=== PATIENT | male | born 1945 | race Caucasian/White ===

== ENCOUNTER → 2024-07-24 15:09 | Outpatient (CLI) | payer MEDICARE, SELFPAY ==
--- NOTE | 2024-07-24 15:13 | DI.US.S_ITS ---
PROCEDURE: US SOFT TISSUE HEAD AND NECK INDICATIONS: MASS OF RT SIDE OF NECK TECHNIQUE: Real-time scanning was performed of the neck region of interest, with image documentation. COMPARISON: None. FINDINGS: Within the right-side of the neck, there are 2 hypoechoic masses seen immediately adjacent to one another measuring 2.7 x 2.2 x 2.2 cm and 2.1 x 1.9 x 1.9 cm. Additional smaller lymph nodes can be seen elsewhere. IMPRESSION: Right-sided neck masses are seen, which are attributed to enlarged, abnormal lymph nodes, most likely representing metastatic disease. Additional evaluation is recommended, beginning with a dedicated soft tissue protocol CT of the neck with IV contrast. Please also consider ENT consultation. Please also consider percutaneous ultrasound-guided biopsy of these lymph nodes. Dictated by: Dimitri Bertrand M.D. on 07/24/2024 at 15:41 Approved by: Dimitri Bertrand M.D. on 07/24/2024 at 15:43
== END ==
PROVIDERS: PCP Family Medicine; Referring Provider Family Medicine; Visit Provider Family Medicine
DX: R22.1 Localized swelling, mass and lump, neck (principal)
CPT/HCPCS: 76536

== ENCOUNTER → 2024-07-28 07:03 | Outpatient (CLI) | payer MEDICARE, SELFPAY ==
--- NOTE | 2024-07-28 07:05 | DI.CT.S_ITS ---
PROCEDURE: CT SOFT TISSUE NECK W CON INDICATIONS: MASS OF RT NECK / ABNORMAL US TECHNIQUE: After the administration of intravenous contrast, 3.0 mm axial sections acquired from the sella to the aortic arch. Additional oblique axial 3.0 mm sections acquired through the pharynx. 3 mm thick coronal and sagittal reformats were generated. For radiation dose reduction, the following was used: automated exposure control. COMPARISON: [facility], , US SOFT TISSUE HEAD AND NECK, 07/24/2024, 15:30. FINDINGS: Image quality: Excellent. Lymph nodes: At the marked area of clinical concern, there are several enlarged lymph nodes seen. The largest solitary lymph node measures 2.8 x 1.9 cm in greatest axial dimension, at the right level 2A. Borderline prominent lymph nodes can be seen elsewhere. Vessels: Visualized vasculature appears patent. Neck spaces: There is abnormal soft tissue fullness with enhancement seen within the right peritonsillar region, as on series 2, image 44, measuring 2.4 x 2.1 cm in greatest axial dimension. Glands: The parotid and submandibular glands appear normal. Thyroid gland demonstrates no significant abnormality. Miscellaneous: Visualized brain and orbits appear normal. Lung apices appear clear. Superficial soft tissues appear normal. Bones: No suspicious bony lesions. Visualized sinuses and mastoids appear unremarkable. At least moderate cervical spine degenerative change is seen. IMPRESSION: Enlarged right-sided neck lymph nodes are seen, which are highly suspicious for metastatic disease. There is abnormal fullness seen within the right peritonsillar region, which is suspicious for primary cancer. Please consider ENT consultation, with laryngoscopy. Dictated by: Dimitri Bertrand M.D. on 07/28/2024 at 12:28 Approved by: Dimitri Bertrand M.D. on 07/28/2024 at 12:31
[2024-07-28 07:45] LABS: Estimated Glomerular Filt Rate > 60 mL/min (>60)
== END ==
PROVIDERS: PCP Family Medicine; Referring Provider Radiology Diagnostic Radiology; Visit Provider Radiology Diagnostic Radiology
DX: R22.1 Localized swelling, mass and lump, neck (principal); R93.89 Abnormal findings on diagnostic imaging of other specified body structures; R59.0 Localized enlarged lymph nodes
CPT/HCPCS: 36415; 70491; 82565; Q9967

== ENCOUNTER → 2024-08-20 14:36 | Outpatient (CLI) | payer MEDICARE, SELFPAY ==
--- NOTE | 2024-08-20 | DI.US.S_ITS ---
PROCEDURE: US BIOPSY LYMPH NODE INDICATIONS: Localized swelling, mass and lump, neck TECHNIQUE: The indications, alternatives, benefits, risks, and complications of the procedure were explained to the patient. Written informed consent was obtained and placed in the chart. Real-time sonography was utilized to choose the site for percutaneous lymph node sampling. The skin was prepped and draped in the usual sterile fashion. 1% lidocaine was infiltrated down to the site of interest. A coaxial needle was then advanced into the site of interest under direct sonographic visualization. A biopsy apparatus was then utilized, and core biopsies were obtained. The needle was then withdrawn; a bandage was applied to the biopsy site. COMPARISON: None. FINDINGS: Biopsy site(s): Right submandibular miryam mass. Needle: [address] biopsy needle set. Number of passes: 4 Medications: 1% lidocaine for local anaesthesia. Complications: None. IMPRESSION: Successful ultrasound-guided right submandibular miryam mass biopsy, with pathology results pending. Dictated by: Faustino Thrasher M.D. on 08/20/2024 at 16:09 Approved by: Faustino Thrasher M.D. on 08/20/2024 at 16:09
--- NOTE | 2024-08-20 | PATH_ITS ---
[facility] Accession Number: [id number] No. of containers..01 Tissue . 01 Material submitted: . submandibular gland - RIGHT SUBMANDIBULAR MASS . 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 See comment. MRV 08/27/2024 1455 Local . 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 Although not favored, differential also includes high-grade salivary carcinoma like mucoepidermoid carcinoma. . The findings were called to Dr. Elizalde on 08/27/2024 [address] Quiros. . As part of ongoing quality control chemist, this case is also reviewed by Dr. Mellissa Nino, who agrees with the interpretation. . 01 Electronically signed: . Emmie Quiros MD, Pathologist NPI- [id number] . 01 Gross description: . Received in formalin with two patient identifiers and right submandibular mass, are three power needle cores 1.2 to 1.6 cm in length. Submitted entirely in cassette A1. ([id number]) /EMMANUEL 08/22/2024 0817 Local . 01 Microscopic: . The malignant cells are strongly and diffusely positive for FÁTIMA, p40 and p63 and variably positive for CK7. The malignant cells are also strongly and diffusely positive for p16. In addition the malignant cells are negative for CK20, mucicarmine, alcian blue, SOX10 and KEVIN-3 arguing against high-grade mucoepidermoid carcinoma and melanoma. All controls stain appropriately. . . * This test was developed and the performance characteristics were validated by [facility]. It has not been cleared or approved by the U.S. Food and Drug Administration. . 01 Pathologist provided ICD-10: C10.9 . 01 CPT . 493459, N38577, [id number], 847855, [id number] Performed at: [address] [address], [place], [place] [id number] MD Reggie Singh MD Phone: [phone]
== END ==
PROVIDERS: PCP Family Medicine; Referring Provider Family Medicine; Visit Provider Family Medicine
DX: C08.0 Malignant neoplasm of submandibular gland (principal)
CPT/HCPCS: 38505; 76942

== ENCOUNTER 2025-03-17 16:34 | Emergency (ER) | payer MEDICARE, SELFPAY ==
[2025-03-17 16:45] VITALS: BP 145/71; PULSE 56; RESP 18; TEMP 37.1; O2SAT 100; BMI 29.9
--- NOTE | 2025-03-17 17:09 | ED.EXTPRO ---
HPI - Extremity Problem <Kareen Ag PA-C - Last Filed: 03/17/25 18:20> General Chief complaint: Extremity Problem,Nontraumatic Stated complaint: Positive DVT R side Time Seen by Provider: 03/17/25 16:54 Source: patient Mode of arrival: Wheelchair History of Present Illness HPI Narrative: 79-year-old male with past medical history cancer of the throat presents to the ED status post a DVT diagnosis from an ultrasound obtained earlier today. Patient states that he has been experiencing right-sided lower leg swelling for the past month. Patient saw his PCP yesterday who ordered an ultrasound which patient underwent today. Ultrasound was positive for a femoral and popliteal DVT. Patient denies fever, chills, chest pain, shortness of breath, nausea, vomiting, leg pain, numbness, tingling, weakness. Patient states that the only symptom in his leg was the swelling. Patient underwent a PET scan recently and was diagnosed as cancer free. No history of prior DVTs or PEs. Related Data Previous Rx's ?Medication ?Instructions ?Recorded apixaban 5 mg (74 tabs) tablets in See Rx Instructions PO .COMPLEX 03/17/25 a dose pack ([employer] DVT-PE Treat #74 ea 30D Start) Allergies Allergy/AdvReac Type Severity Reaction Status Date / Time No Known Drug Allergies Allergy Verified 03/17/25 18:05 Review of Systems <Kareen Ag PA-C - Last Filed: 03/17/25 18:20> Constitutional Constitutional: Denies chills, Denies fatigue, Denies fever(s), Denies frequent falls, Denies lethargy and Denies weakness Eyes Eyes: Denies change in vision, Denies eye discharge, Denies irritation and Denies loss of vision ENT Ears, Nose, Mouth, and Throat: Denies change in voice, Denies dizziness, Denies neck pain, Denies sore throat and Denies throat swelling Cardiovascular Cardiovascular: Denies chest pain, Denies irregular heart rhythm, Denies lightheadedness, Denies palpitations, Denies dyspnea, Denies dyspnea on exertion and Denies orthopnea Respiratory Respiratory: Denies cough, Denies dyspnea, Denies dyspnea on exertion and Denies wheezing Gastrointestinal Gastrointestinal: Denies abdominal pain, Denies change in bowel habits, Denies diarrhea, Denies nausea and Denies vomiting Musculoskeletal Musculoskeletal: Denies neck pain and Denies numbness Comments: Right lower leg swelling Integumentary/Breasts Skin/Breast: Denies pruritus, Denies erythema, Denies rash and Denies wounds Neurologic Neurologic: Denies behavioral changes, Denies confusion, Denies dizziness, Denies frequent falls, Denies loss of vision, Denies numbness and Denies weakness Psychiatric Psychiatric: Denies anxiety, Denies behavioral changes, Denies confusion, Denies depression, Denies homicidal ideation and Denies suicidal ideation Endocrine Endocrine: Denies fatigue, Denies flushing and Denies palpitations Hematologic/Lymphatic Hematologic/Lymphatic: Denies easy bruising Allergic/Immunologic Allergic/Immunologic: Denies urticaria, Denies throat swelling and Denies wheezing Patient History <Kaeren Ag PA-C - Last Filed: 03/17/25 18:20> Social History Smoking Status: Never smoker Smoking Status: Never smoker Alcohol type: wine Exam <Kareen Ag PA-C - Last Filed: 03/17/25 18:20> Narrative Exam Narrative: Const General:?cooperative, healthy appearing and comfortable [facility] Head:?normal to inspection Ears:?hearing grossly normal bilaterally Nose:?external nose normal Face and sinus:?normal facial exam and sinuses nontender Mouth:?oral mucosae normal Throat:?posterior oropharynx normal Eyes General:?appearance normal, both eyes and all related structures Neck Neck:?normal visual inspection and no lymphadenopathy noted Resp Effort & Inspection:?normal respiratory effort Auscultation:?clear to auscultation bilaterally Cardio Rate:?regular rate Rhythm:?regular rhythm Musculoskeletal There is swelling of the right lower leg compared to the left. Mild erythema in the lower half of the lower leg. Pulses intact. Neurovascularly intact. Compartments soft. Patient is able to bear weight and walk. Neuro General:?patient alert, patient awake and patient oriented x3 Initial Vital Signs Initial Vital Signs: Vital Signs Temperature 98.7 F 03/17/25 16:45 Pulse Rate 56 L 03/17/25 16:45 Respiratory Rate 18 03/17/25 16:45 Blood Pressure 145/71 H 03/17/25 16:45 Pulse Oximetry 100 03/17/25 16:45 Oxygen Delivery Method Room Air 03/17/25 16:45 <Jacky Dela Cruz MD - Last Filed: 03/18/25 06:28> Initial Vital Signs Initial Vital Signs: Vital Signs Temperature 98.7 F 03/17/25 16:45 Pulse Rate 56 L 03/17/25 16:45 Respiratory Rate 18 03/17/25 16:45 Blood Pressure 145/71 H 03/17/25 16:45 Pulse Oximetry 100 03/17/25 16:45 Oxygen Delivery Method Room Air 03/17/25 16:45 Course <Kareen Ag PA-C - Last Filed: 03/17/25 18:20> Orders Ordered: Discontinued Medications Apixaban (Apixaban 5 Mg Tablet) 10 mg PO NOW ONE Stop: 03/17/25 18:00 Last Admin: 03/17/25 18:14 Dose: 10 mg Documented By: BECK Vital Signs Vital signs: Vital Signs - 8 hr 03/17/25 16:45 Temperature 98.7 F Pulse Rate 56 L Respiratory Rate 18 Blood Pressure 145/71 H Pulse Oximetry 100 Oxygen Delivery Method Room Air <Jacky Dela Cruz MD - Last Filed: 03/18/25 06:28> Orders Ordered: Discontinued Medications Apixaban (Apixaban 5 Mg Tablet) 10 mg PO NOW ONE Stop: 03/17/25 18:00 Last Admin: 03/17/25 18:14 Dose: 10 mg Documented By: BECK Vital Signs Vital signs: Vital Signs - 8 hr 03/17/25 16:45 Temperature 98.7 F Pulse Rate 56 L Respiratory Rate 18 Blood Pressure 145/71 H Pulse Oximetry 100 Oxygen Delivery Method Room Air MDM - Extremity (Nontraumatic) <Kareen Ag PA-C - Last Filed: 03/17/25 18:20> MDM Narrative Medical decision making narrative: 79-year-old male with past medical history cancer of the throat presents to the ED status post a DVT diagnosis from an ultrasound obtained earlier today. Given that patient has femoral and popliteal thrombosis, will initiate anticoagulation with Eliquis. First dose given in the ED. Patient given a prescription for the 1st month. Patient agrees to follow-up with PCP Dr. Elizalde further evaluation and extension of the anticoagulant. Fall precautions discussed with patient. Patient agrees to return to the ED if he since his chest pain, shortness of breath or any other worsening symptoms. ED return precautions discussed in detail with patient. Patient verbalized understanding. Medical records reviewed: Yes Discharge Plan Departure Patient Disposition: Home Clinical Impression: Deep vein thrombosis of lower extremity Qualifiers: Affected thrombotic vein of extremity: femoral Chronicity: acute Laterality: right Qualified Code(s): I82.411 - Acute embolism and thrombosis of right femoral vein Instructions: DI for Deep Vein Thrombosis Activity Restrictions/Additional Instructions: You were evaluated in the emergency department for blood clots in the right popliteal and femoral veins. These are considered deep veins and it is therefore advisable to start anticoagulation with Eliquis. Your 1st dose was given in the ED today. Your 1st months prescription has been sent to [facility] in [place]. Please follow-up with Dr. Elizalde as soon as possible for further evaluation and extension of anticoagulation. Please exercise good fall precautions, since Eliquis can make you more prone to bleeding, especially in the light of head injuries. Please continue to monitor your symptoms, return to the ED or call 911 if you experience chest pain, shortness of breath or any worsening symptoms Prescriptions: New Eliquis DVT-PE Treat 30D Start 5 mg (74 tabs) tablets,dose pack See Rx Instructions .ROUTE .COMPLEX Qty: 74 0RF Rx Instructions: orally per package directions Referrals: Loco Elizalde MD [Primary Care Provider, Family Practice] Stand Alone Forms: Patient Portal/API ED Sign-out <Jacky Dela Cruz MD - Last Filed: 03/18/25 06:28> Cosign ED Attending Angleature Attestation: I was immediately available in the department for consultation. This documentation has been reviewed and I agree with assessment and plan. Supervised by Jacky Dela Cruz MD
[2025-03-17] MEDS: APIXABAN 5 MG TABLET 10 MG PO (18:14)
[2025-03-17 18:22] VITALS: BP 144/68; PULSE 55; RESP 19; O2SAT 100
== END 2025-03-17 18:23 | disposition home or self-care (01) ==
PROVIDERS: Emergency Provider Student in an Organized Health Care Education/Training Program; PCP Family Medicine
DX: I82.411 Acute embolism and thrombosis of right femoral vein (principal); I82.431 Acute embolism and thrombosis of right popliteal vein
CPT/HCPCS: 93971; 99283